=== PATIENT | male | born 1950 | race Caucasian/White ===

== ENCOUNTER → 2021-01-21 | Outpatient (CLI) | payer OTHER ==
--- NOTE | 2021-01-27 12:05 | PF ---
[address] [address] PULMONARY FUNCTION REPORT Name: KODY BANEGAS Room: [facility]#: [id number] Admission: 01/21/21 Attend Phys: Felipe Harrell MD Discharge: Date of : 54 Report #: [id number] THIS REPORT FOR: cc: FAM - No family physician/PCP FAM - No family physician/PCP Toy Garcia MD ~ DATE OF SERVICE: 01/21/2021 The FEV1/FVC ratio is normal at 75% with an FVC mildly decreased to 79%. The FEV1 is normal at 80%. The [id number] is also normal at 86%. After the administration of a bronchodilator, there is no significant change in any of these values. The patient's post-bronchodilator FEV1 is noted to be 2.67 liters. Only a spirometry was performed. The flow volume loop is mildly concave upwards. IMPRESSION: There is minimal reduction in forced vital capacity to 79%. The rest of the spirometry is normal, mild obstruction or mild restriction can lead to this picture. Clinical correlation is advised. <ELECTRONICALLY SIGNED> By: Toy Garcia MD 01/27/21 1205 [id number] Garcia MD /nt
== END ==
LOC: M.PUL 09:47
PROVIDERS: ATTEND Orthopaedic Surgery
DX: J98.4 Other disorders of lung (principal); I89.8 Other specified noninfective disorders of lymphatic vessels and lymph nodes; R06.02 Shortness of breath; M47.814 Spondylosis without myelopathy or radiculopathy, thoracic region; Z77.090 Contact with and (suspected) exposure to asbestos